=== PATIENT | male | born 1955 | race Caucasian/White ===

== ENCOUNTER → 2021-04-08 | Outpatient (CLI) | payer BC ==
--- NOTE | 2021-04-09 10:46 | ECHOF ---
Referral Reason:R01.1 MEASUREMENTS -------- HEIGHT: 172.7 cm WEIGHT: 81.6 kg BP: 171/89 RVIDd: 2.9 cm (< 3.3) IVSd: 1.3 cm (0.6 - 1.1) LVIDd: 4.3 cm (3.9 - 5.3) LVPWd: 1.3 cm (0.6 - 1.1) IVSs: 1.8 cm LVIDs: 2.9 cm LVPWs: 1.9 cm LA Diam: 3.5 cm (2.7 - 3.8) LAESV Index (A-L): 26.73 ml/m Ao Diam: 4.1 cm (2.0 - 3.7) AV Cusp: 2.1 cm (1.5 - 2.6) MV E Tong: 0.79 m/s MV DecT: 342 ms MV A Tong: 0.99 m/s MV E/A Ratio: 0.80 AV maxP.17 mmHg AV meanP.28 mmHg AR PHT: 853 ms FINDINGS -------- Sinus rhythm. This was a technically adequate study. The left ventricular size is normal. There is mild concentric left ventricular hypertrophy. Overa ll left ventricular systolic function is normal with, an EF between 60 - 65 %. The right ventricle is normal in size. Normal LA size by volume 22+/-6 ml/m2. The right atrium is normal in size. Interatrial and interventricular septum intact. There is moderate aortic valve sclerosis. There is [id number] aortic regurgitation. There i s moderate aortic stenosis present. Peak/mean gradient across the Aortic Valve is 53.17mmHg / 29.28 mmHg. The mitral valve is normal. The tricuspid valve appears structurally normal. Unable to estimate RVSP due to inadequate TR jet s pectral doppler profile. Trace/mild (physiologic) pulmonic regurgitation. The aortic root is dilated measuring 4.1cm. Normal inferior vena cava with normal inspiratory collapse consistent with estimated right atrial pre ssure of 5 mmHg. There is no pericardial effusion. CONCLUSIONS -------- 1. The left ventricular size is normal. 2. There is mild concentric left ventricular hypertrophy. 3. Overall left ventricular systolic function is normal with, an EF between 60 - 65 %. 4. There is moderate aortic valve sclerosis. 5. There is sdsb-rt-ddtjlplo aortic regurgitation. 6. There is moderate aortic stenosis present. 7. Peak/mean gradient across the Aortic Valve is 53.17mmHg / 29.28mmHg. 8. Trace/mild (physiologic) pulmonic regurgitation. 9. The aortic root is dilated measuring 4.1cm. 10. There is no pericardial effusion. RIDER TICKET WORKER: Clary Hennessy RDCS
== END | disposition home or self-care (01) ==
LOC: RADECHMAIN 13:47
PROVIDERS: ATTEND Family Medicine
DX: I35.2 Nonrheumatic aortic (valve) stenosis with insufficiency (principal); I37.1 Nonrheumatic pulmonary valve insufficiency; I51.7 Cardiomegaly; I35.8 Other nonrheumatic aortic valve disorders
CPT/HCPCS: 93306

== ENCOUNTER → 2021-04-12 | Outpatient (CLI) | payer BC ==
--- NOTE | 2021-04-12 11:54 | CT ---
EXAMINATION TYPE: CT angio head neck DATE OF EXAM: 04/12/2021 COMPARISON: None HISTORY: Family hx of (Ischem Dis. & Dis. of Circ. System CT DLP: 1547.40 mGycm CONTRAST: Performed without and with IV Contrast, patient injected with 65 mL of Isovue 370. Combination Contrast CTA cervical carotids and [place] CTA cervical carotids with 3-D recons truction Contrast CTA of the cervical carotids was performed 3-D reconstruction imaging obtained at a separate workstation. Right carotid system: Mild plaque is seen of the right common carotid artery. There is mild plaque a lso noted at the carotid bulb and proximal ICA. No significant diameter reduction. ECA is patent. Right vertebral artery appears unremarkable. Left carotid system: Mild plaque is seen of the left common carotid artery. There is mild plaque als o noted at the carotid bulb and proximal ICA. No significant diameter reduction. ECA is patent. Lef t vertebral artery appears unremarkable. IMPRESSION: 1. No significant diameter reduction to account for the patient's symptoms. CTA [place] with 3-D reconstruction Contrast CTA of the [place] was performed 3-D reconstruction imaging obtained at a separate workstation. Vertebrobasilar system as well as intracranial portions of the internal carotid arteries and their ma jameel tributaries are patent. I do not see evidence for sizable aneurysm or vascular malformation. Pl ease note MRI provides greater sensitivity and specificity. Visualized brain appears grossly unremar kable. IMPRESSION: 1. No significant abnormality. NASCET criteria was used in interpretation of this exam?
== END | disposition home or self-care (01) ==
LOC: RADCTMAIN 08:58
PROVIDERS: ATTEND Family Medicine
DX: I65.23 Occlusion and stenosis of bilateral carotid arteries (principal); Z82.49 Family history of ischemic heart disease and other diseases of the circulatory system
CPT/HCPCS: 70496; 70498; Q9967

== ENCOUNTER → 2022-06-09 | Outpatient (CLI) | payer MEDICARE, BC ==
[2022-06-09 10:49] VITALS: BP 169/81; PULSE 74; RESP 18; TEMP 98.7
--- NOTE | 2022-06-09 16:27 | P.PAINPG ---
PQRS Measure Charge Sheet Comment: HISTORY OF PRESENT ILLNESS: 66 yr old male as a referral from Dr Esquivel presents today w severe and chronic LBP secondary to DDD, spondylosis and facet arthropathy without myelopathy for evaluation. Pt states pain level is provoked at 8/10 in intensity, constant, localized in the R lower lumbar spine, achy in character w shooting pain towards the RLE. Pain is provoked by bending lifting. Pain is alleviated by topicals, injections in the past, repositioning and rest. Pt states he's had ESIs in the past which were minimally effective. He feels PT wouldn't help treat his pain. PMH: OA, HTN. He stated he's started receiving treatment for anxiety. PSH: Inguinal Hernia Repair SH: Hx of tobacco use, Occasional ETOH use, No illicit drug use. 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 FH: Non contributory All: NKDA Meds: See list REVIEW OF ORGAN SYSTEMS: CONSTITUTIONAL: No fevers or chills. No recent weight loss. NEUROLOGICAL: + numbness and tingling along the distal extremities. No seizure disorders or headaches. MUSCULOSKELETAL: + pain PSYCHIATRIC: Denies current depression or suicidal thoughts. Physical Examinations : Constitutional : Cooperative , not in acute distress . Neurologic : Cranial nerve II to XII intact. No focal neurological deficits. Psychiatric : alert & oriented x 3. Matching mood & appropriate affect. Judgment & insight intact. Musculoskeletal : Cervical Spine Motor strength in the deltoid and biceps: Normal right side. Normal Left side Motor strength biceps and the wrist extensors: Normal right side . Normal left side Motor strength in the triceps muscle: Normal right side. Normal left side Deep tendon reflexes: Normal at the biceps. Normal at Brachioradialis. Normal at triceps Vertebral body tenderness to deep palpation over Cervical facet loading test: positive bilaterally Spurling test: positive bilaterally Neck distraction test: positive bilaterally Ubaldo sign: positive bilaterally Lumbar spine Motor strength lower extremities ,thigh and legs 5/5 Right side , 5/5 Left side Deep tendon reflexes : Normal Knee Jerk. Normal Ankle Jerk Vertebral body tenderness over L5 Lumbar facet Loading Test: positive Right / positive Left Range of motion of the lumbar spine Flexion 30 degrees, extension 10 degrees Straight Leg Raise test: Left/ Right positive at degree Marianne test: positive right / positive left. Severe tenderness over the Sacroiliac joint on the Right / Left sides Gaenslen test: positive bilaterally Seated flexion test: positive bilaterally. Sacral spine : Severe tenderness over the Sacroiliac joint: right side / left side Range of motion: Flexion of the lumbar spine <60 degrees Range of motion: Extension of the lumbar spine <20 degrees Gaenslen's Test positive William's Test positive Marianne test: positive right side / left side Thigh Thrust Test Sacral Thrust Test Imaging: MRI without contrast of the lumbar spine from Apr 2022 reviewed Assessment/ Plan : Lumbar DDD Recommendation of PT x 6 wks re: M51.36. Risks, benefits of procedure discussed and patient verbalized understanding. Admits to aspirin or anti- coagulant use or medical history of diabetes. Protocol for discontinuation/ continuation of medications zoila procedure discussed. All questions answered. I have spent greater than 30 minutes on patient care today. Dr Watson was a vailable by phone for the evaluation of this patient. The time was used to review the medical records including relevant urine studies and Prescription history (MAPs), review of the available imaging, evaluation and examination of the patient, coordination of care with the medical staff and if applicable referring physicians, as well as creation of the medical record - Pain Location Right Lower Back Pharmacological Interventions: Topical Medication Controlled Substance Measures - Controlled Substance Measures Is patient prescribed a controlled substance at discharge?: No
== END ==
LOC: PNWHC3 09:49
PROVIDERS: ATTEND Specialist
DX: M51.36 Other intervertebral disc degeneration, lumbar region (principal); M19.90 Unspecified osteoarthritis, unspecified site; I10 Essential (primary) hypertension
CPT/HCPCS: 99211

== ENCOUNTER → 2022-08-04 | Outpatient (CLI) | payer MEDICARE, BC ==
[2022-08-04 10:33] VITALS: BP 155/82; PULSE 53; RESP 18
--- NOTE | 2022-08-07 07:42 | P.PAINPG ---
PQRS Measure Charge Sheet Comment: A 66 yr old male with a history of severe and chronic LBP secondary to lumbar DDD and spondylosis with facet arthropathy without myelopathy presents today for LBP. Pain level is provoked at 6/10 in intensity, constant, localized in the BL lower lumbar spine, dull in character w shooting towards the RLE, ankle mostly. Pain is provoked by bending, lifting > 40 lbs. Pain is alleviated with PT x 6 wks which ended in June 2022, Cannabis use, topicals, reclining, repositioning and rest. Pt states he's had ESIs in the past which were minimally effective. Interventional pain procedures completed include LESIs Patient is currently on Asper Creme, Voltaren gel Patient denies any side effects of the medication(s), denies excessive drowsiness or sleepiness, denies suicidal ideation and reports that the current pain medication is helping to control the pain and improve activities of daily living. Patient denies any motor or sensory deficits. Patient denies any fever or night sweats, denies any change in the bowel movements or urination. Physical Examination: -Constitutional: Cooperative. Not in acute distress . - Neurologic: Cranial nerve II to XII intact. No focal neurological deficits. - Psychatric: Alert & oriented x 3. Matching mood & appropriate affect. Judgment and insight intact. - Musculoskeletal: Cervical spine: Muscle bulk/ tone/ strength in the bilateral upper extremities normal Vertebral body tenderness to palpation over Spurling test positive Distraction test positive Facet loading test positive TTP Thoracic spine Muscle bulk / tone/ strength in the bilateral paraspinal muscles normal Vertebral body tender to palpation over Facet loading test positive TTP Lumbar spine: Motor bulk/ tone/ strength lower extremities , thigh and legs : 5/5 Deep tendon reflexes : Normal Knee Jerk. Normal Ankle Jerk . Vertebral body tenderness to palpation over Oneal Test positive on L5 Lumbar Facet Loading Test positive Straight Leg Raise: positive at 30 degrees right side/ left side Gaenslen's Test positive Sacral spine : Severe tenderness over the Sacroiliac joint: right side / left side Range of motion: Flexion of the lumbar spine <60 degrees Range of motion: Extension of the lumbar spine <20 degrees Gaenslen's Test positive right side / left side Marianne test: positive right side / left side Thigh Thrust Test positive right side / left side Sacral Thrust Test positive right side / left side Imaging: MRI noncontrast of the lumbar spine from 2/24/23 requested from [facility] Assessment and plan: Chronic LBP secondary to lumbar DDD, spondylosis with facet arthropathy without myelopathy Recommendation of R TFESI L5-S1 #1. May need a series of injections for optimal pain relief. Risks, benefits of procedure discussed and pt verbalized understanding. Admits to anticoagulant use or medical history of diabetes. Protocol for discontinuation/ continuation of medications zoila procedure discussed. Minimal anesthesia provided, if clinically indicated, consisting of Versed and Fentanyl. All questions answered. I have spent less than 30 minutes on patient care today. Dr Watson was available by phone for the evaluation of this patient. The time was used to review the medical records including relevant urine studies and Prescription history (MAPs), review of the available imaging, evaluation and examination of the patient, coordination of care with the medical staff and if applicable referring physicians, as well as creation of the medical record PQRS Narrative: Hx Alcohol Use (MH) No Controlled Substance Measures - Controlled Substance Measures Is patient prescribed a controlled substance at discharge?: No
== END ==
LOC: PNWHC3 09:53
PROVIDERS: ATTEND Specialist
DX: M51.36 Other intervertebral disc degeneration, lumbar region (principal); M47.816 Spondylosis without myelopathy or radiculopathy, lumbar region; G89.29 Other chronic pain
CPT/HCPCS: 99211

== ENCOUNTER 2022-08-26 08:43 | Day surgery (SDC) | payer MEDICARE, BC ==
[~2022-08-26 08:43] MED LIST: LACTATED RINGERS 1,000 ML IV SCH
[2022-08-26 09:11] VITALS: RESP 16; TEMP 98
[2022-08-26] MEDS ORDERED: methylPREDNISolone ACETATE 80 MG/ML 1 ML VIAL ONE (09:25)
[2022-08-26] MEDS ORDERED: IOPAMIDOL M200 10 ML VIAL ONE (09:25)
--- NOTE | 2022-08-26 09:33 | P.PCN ---
Date of Procedure: 08/26/22 Procedure(s) Performed: PREOPERATIVE DIAGNOSIS: 1-Lumbar radiculopathy . 2-lumbar degenerative disc disease. 3-lumbar spondylosis with lumbar facet arthropathy without myelopathy POSTOPERATIVE DIAGNOSIS: 1-lumbar radiculopathy. 2-lumbar degenerative disc disease. 3-lumbar spondylosis with facet arthropathy without myelopathy PROCEDURE 1. Transforaminal epidural steroid injection under fluoroscopic guidance at right L5-S1 level. (Fluoroscopy images stored on file in the radiology Department ) 2. Lumbar epidurogram . ANESTHESIA: Local with 1% lidocaine 3 ml. EBL: Minimal PROCEDURE INDICATION: The patient with low back pain and radiculopathy symptoms unresponsive to conservative treatment. PROCEDURE DESCRIPTION / TECHNIQUE: The patient was seen and identified in the preoperative area. Risks, benefits, complications, and alternatives were discussed with the patient. The patient agreed to proceed with the procedure and signed the consent. IV was started, and vital signs were stable. Patient was taken to the OR and time out was completed. The patient was placed in the prone position on procedure table and a pillow was placed under the abdomen to reduce lumbar lordosis. The lumbosacral area was prepped and draped in the usual sterile fashion. Critical pause was taken. Vital signs were closely monitored during the procedure. Using oblique fluoroscopy, the chin of the ``Christofer dog at right L5-S1 level was identified, and the skin and deeper tissues just below was localized with 1% lidocaine. Subsequently, a 22-gauge 3.5-inch spinal needle was advanced under a tunneled view fluoroscopic guidance just underneath the chin of the `Tahiry dog at the right L5-S1 Under lateral fluoroscopy, the needle was then advanced to the posterior border of the interforaminal space. After negative aspiration of CSF and blood and with no paresthesias, 1 mL Isovue 200 contrast dye was injected excellent epidurogram and outlining of the nerve root Subsequently, 3 mL of block solution containing 60 mg Depo-Medrol and 2 mL of 0.9% normal saline PF was injected. Needle was removed . At the end of the procedure, skin was cleansed, and bandages were applied. COMPLICATIONS:none DISPOSITION / PLANS: The patient was placed in a supine position and transferred to the recovery area in a stable condition for observation. There was no evidence of lower extremity motor or sensory deficit after the procedure. Patient was discharged from the recovery room after meeting discharge criteria. Home discharge instructions were given to the patient by the staff. The patient was reexamined prior to discharge.
--- NOTE | 2022-08-26 09:44 | FL ---
Intraoperative/procedural fluoroscopic services were provided. Total fluoroscopy time is 5.1 seconds with a total of 1 submitted images to PACS. Please see the operative/procedural note for further deta ils. DAP: [id number] mGym2
[2022-08-26 09:51] VITALS: BP 192/88; PULSE 69
== END 2022-08-26 10:08 | disposition home or self-care (01) ==
LOC: ORPAIN 08:43
PROVIDERS: ATTEND Specialist
DX: M51.16 Intervertebral disc disorders with radiculopathy, lumbar region (principal); M47.26 Other spondylosis with radiculopathy, lumbar region; Z79.82 Long term (current) use of aspirin
CPT/HCPCS: 64483; J1040; Q9966

== ENCOUNTER → 2022-09-03 | Outpatient (CLI) | payer MEDICARE, BC ==
[2022-09-03 15:53] LABS: Basophils # (A) 0.05 X 10*3/uL (0.00-0.10); Basophils % (A) 0.7 %; Eosinophils % (A) 2.9 %; HCT 41.9 % (39.6-50.0); HGB 13.3 d/dL (12.0-15.0); Lymphocytes # (A) 2.22 X 10*3/uL (0.90-5.00); Lymphocytes % (A) 32.1 %; MCH 29.4 pg (27.0-32.0); MCHC 31.7 d/dL (32.0-37.0); MCV 92.5 FL (80.0-97.0); Monocytes # (A) 0.47 X 10*3/uL (0.20-1.00); Monocytes % (A) 6.8 %; NRBC Per 100 WBC 0 X 10*3/uL (0.00-0.01); Neutrophils # (A) 3.96 X 10*3/uL (1.80-7.70); Neutrophils % (A) 57.4 %; Platelet Count 178 X 10*3/uL (140-440); RBC 4.53 X 10*6/uL (4.40-5.60); RDW 13.7 % (11.5-14.5); WBC 6.91 X 10*3/uL (4.50-10.00)
== END | disposition home or self-care (01) ==
LOC: LABPAT 08:33
PROVIDERS: ATTEND Surgery
DX: Z01.818 Encounter for other preprocedural examination (principal); K40.90 Unilateral inguinal hernia, without obstruction or gangrene, not specified as recurrent; R94.31 Abnormal electrocardiogram [ECG] [EKG]; R00.1 Bradycardia, unspecified
CPT/HCPCS: 85025; 93005

== ENCOUNTER 2022-09-09 06:50 | Day surgery (SDC) | payer MEDICARE, BC ==
[~2022-09-09 06:50] MED LIST changes: +ACETAMINOPHEN TAB 500 MG TAB PO PRN; +HEPARIN SODIUM,PORCINE/PF 5,000 UNIT/0.5 ML SYRINGE SQ PRN; -LACTATED RINGERS 1,000 ML IV SCH
[2022-09-09] MEDS ORDERED: ONDANSETRON 4 MG/2 ML VIAL IVP ONE (07:14)
[2022-09-09] MEDS ORDERED: LIDOCAINE 1% (10MG/ML) FOR IV START INTRADERMA PRN (07:14)
[2022-09-09] MEDS ORDERED: LACTATED RINGERS 1,000 ML IV SCH (07:14)
[2022-09-09] MEDS ORDERED: droPERidol 5 MG/2 ML VIAL IVP ONE (07:14)
[2022-09-09] MEDS ORDERED: HYDROmorphone 0.5 MG/0.5 ML SYRINGE IVP PRN (07:14)
[2022-09-09] MEDS ORDERED: DEXAMETHASONE SOD PHOSPHATE 4 MG/ML 1 ML VIAL IV ONE (07:14)
[2022-09-09] MEDS ORDERED: MIDAZOLAM 2 MG/2 ML VIAL IVP ONE (08:07)
[2022-09-09] MEDS ORDERED: TAMSULOSIN 0.4 MG CAP.ER.24H PO ONE (08:25)
[2022-09-09] MEDS ORDERED: ROPIVACAINE 5 MG/ML 30 ML VIAL ONE (08:28)
[2022-09-09] MEDS ORDERED: SODIUM CHLORIDE 0.9% (PF) 10 ML VIAL ONE (08:28)
[2022-09-09] MEDS ORDERED: KETOROLAC 15 MG/ML 1 ML VIAL ONE (08:28)
[2022-09-09] MEDS ORDERED: SUCCINYLCHOLINE CHLORIDE 200 MG/10 ML VIAL IV ONE (08:28)
[2022-09-09] MEDS ORDERED: GLYCOPYRROLATE 0.2 MG/ML 2 ML VIAL ONE (08:28)
[2022-09-09] MEDS ORDERED: KETAMINE 10 MG/ML 20 ML VIAL ONE (08:28)
[2022-09-09] MEDS ORDERED: MIDAZOLAM 2 MG/2 ML VIAL ONE (08:28)
[2022-09-09] MEDS ORDERED: fentaNYL (PF) 50 MCG/ML 2 ML AMP ONE (08:28)
[2022-09-09] MEDS ORDERED: ROCURONIUM 10 MG/ML (5 ML VIAL) IV ONE (08:28)
[2022-09-09] MEDS ORDERED: NEOSTIGMINE 1 MG/ML 10 ML VIAL ONE (08:28)
[2022-09-09] MEDS ORDERED: PROPOFOL 10 MG/ML 20 ML VIAL IV ONE (08:28)
[2022-09-09] MEDS ORDERED: DEXAMETHASONE SOD PHOSPHATE 4 MG/ML 1 ML VIAL ONE (08:28)
[2022-09-09] MEDS ORDERED: PHENYLEPHRINE-0.9% NACL SYG 1,000 MCG/10 ML SYRINGE ONE (08:28)
[2022-09-09] MEDS ORDERED: BUPIVACAINE (PF) 0.25% 30 ML VIAL SQ ONE (09:03)
[2022-09-09 09:41] VITALS: TEMP 97.5
[2022-09-09] MEDS ORDERED: LACTATED RINGERS 1,000 ML IV ONE (10:11)
[2022-09-09] MEDS ORDERED: ONDANSETRON 4 MG/2 ML VIAL ONE (10:41)
[2022-09-09 11:02] VITALS: BP 183/91; PULSE 61; RESP 18
--- NOTE | 2022-09-09 11:13 | P.OP ---
Date of Procedure: 09/09/22 Preoperative Diagnosis: Left inguinal hernia Postoperative Diagnosis: recurrent left inguinal hernia Procedure(s) Performed: Laparoscopic robotic system repair of recurrent left internal hernia Transversus abdominis plane block Anesthesia: ALLEGRA Surgeon: Piotr Levy Estimated Blood Loss (ml): 5 Pathology: none sent Condition: stable Disposition: PACU Description of Procedure: The patient's placed on the operating table in the supine position. The patient received general anesthesia. The patient's abdomen was prepped and draped in usual sterile fashion. The skin was anesthetized 1% local Xylocaine at the incision sites. Using an 11 blade a skin incision was made at the umbilicus. The fascia was grasped with a Benton and then the peritoneal cavity was entered with the Veress needle. Position of the Veress needle was confirmed with a positive drop test. After adequate insufflation a 5 mm trocar was placed into the peritoneal cavity. The Laparoscope was placed the peritoneal cavity. And a robotic 8 mm trocar was placed in the right lateral position and then another 8 mm robotic trochars placed in the left lateral position. The original 5 mm trocar was exchanged for a 12 mm trocar. A four-quadrant transversus abdominis plane block was performed using 1% local Xylocaine. The patient was placed in reverse Trendelenburg and then the patient was docked to the robot. Next the peritoneum over top of the hernia was incised and then using blunt and sharp dissection and electrocautery the hernia sac was dissected free from the floor of the inguinal canal. The hernia sac was completely reduced into the peritoneal cavity. And then using the [employer] sales appointment coordinator mesh the hernia was repaired. The peritoneum was then sutured with 20V lock suture. The patient was then undocked the robot. The needle was withdrawn from the peritoneal cavity. The umbilical trocar site was closed with 0 Ethibond suture. The skin was closed interrupted 3-0 Monocryl suture. Dermabond dressing was applied. Patient was sent to recovery in stable condition.
--- NOTE | 2022-09-09 11:49 | P.ANPRN ---
Procedure Note - Anesthesia - Nerve Block Performed Bilateral Erector Spinae Single Time Out Performed: Yes Date of Procedure: 09/09/22 Procedure Start Time: : Procedure Stop Time: : Location of Patient: PreOp Indication: Acute Post-Operative Pain, Requested by Surgeon Sedation Type: Sedate with meaningful contact maintained Preparation: Sterile Prep Position: Prone Catheter: None Needle Types: Pajunk Needle Gauge: 21 Ultrasound used to visualize needle placement: Yes Ultrasound used to observe medication spread: Yes Blood Aspirated: No Pain Paresthesia on Injection Noted: No Resistance on Injection: Normal Image Stored and Saved: Yes Events: Uneventful and Well Tolerated (Ropivacaine 0.5% 15 mL plus normal saline 10 mL plus dexamethasone 4 mg given bilaterally at L2)
== END 2022-09-09 11:39 | disposition home or self-care (01) ==
LOC: OR 06:50
PROVIDERS: ATTEND Surgery
DX: K40.91 Unilateral inguinal hernia, without obstruction or gangrene, recurrent (principal); G89.18 Other acute postprocedural pain; I10 Essential (primary) hypertension; E78.5 Hyperlipidemia, unspecified; E07.9 Disorder of thyroid, unspecified; Z79.890 Hormone replacement therapy; Z79.899 Other long term (current) drug therapy; Z98.890 Other specified postprocedural states
CPT/HCPCS: 49651; S2900; 64999; 86850; 86900; 86901

== ENCOUNTER → 2022-09-17 | Outpatient (CLI) | payer MEDICARE, BC ==
[2022-09-17 09:25] VITALS: BP 173/90; PULSE 68; RESP 14; TEMP 98.2
--- NOTE | 2022-09-17 15:30 | P.PAINPG ---
PQRS Measure Charge Sheet Comment: A 66 yr old male with a history of severe and chronic LBP secondary to lumbar DDD and spondylosis with facet arthropathy without myelopathy presents today for evaluation s/p R TFESI L5-S1. PT states he experienced 80% pain relief x 3 wks s/p procedure. Pain level is provoked at 4/10 in intensity, constant, localized in the BL lower lumbar spine, dull in character w shooting towards the RLE, ankle mostly. Pain is provoked by bending, lifting > 40 lbs. Pain is alleviated with PT x 6 wks which ended in June 2022, Cannabis use, topicals, reclining, repositioning and rest. Oswestry axial pain score of 4. Interventional pain procedures completed include LESIs, R TFESI L5-S1 Patient is currently on Asper Creme, Voltaren gel Patient denies any side effects of the medication(s), denies excessive drowsiness or sleepiness, denies suicidal ideation and reports that the current pain medication is helping to control the pain and improve activities of daily living. Patient denies any motor or sensory deficits. Patient denies any fever or night sweats, denies any change in the bowel movements or urination. Physical Examination: -Constitutional: Cooperative. Not in acute distress . - Neurologic: Cranial nerve II to XII intact. No focal neurological deficits. - Psychatric: Alert & oriented x 3. Matching mood & appropriate affect. Judgment and insight intact. - Musculoskeletal: Cervical spine: Muscle bulk/ tone/ strength in the bilateral upper extremities normal Vertebral body tenderness to palpation over Spurling test positive Distraction test positive Facet loading test positive TTP Thoracic spine Muscle bulk / tone/ strength in the bilateral paraspinal muscles normal Vertebral body tender to palpation over Facet loading test positive TTP Lumbar spine: Motor bulk/ tone/ strength lower extremities , thigh and legs : 5/5 Deep tendon reflexes : Normal Knee Jerk. Normal Ankle Jerk . Vertebral body tenderness to palpation over Oneal Test positive Lumbar Facet Loading Test positive Straight Leg Raise: positive at 30 degrees right side/ left side Gaenslen's Test positive Sacral spine : Severe tenderness over the Sacroiliac joint: right side / left side Range of motion: Flexion of the lumbar spine <60 degrees Range of motion: Extension of the lumbar spine <20 degrees Gaenslen's Test positive right side / left side Marianne test: positive right side / left side Thigh Thrust Test positive right side / left side Sacral Thrust Test positive right side / left side Imaging: MRI noncontrast of the lumbar spine from 04/25/22 requested from [facility] Assessment and plan: Chronic LBP secondary to lumbar DDD, spondylosis with facet arthropathy without myelopathy Pt exhibited substantial pain relief w procedure. He may return to clinic as needed. All questions answered. I have spent less than 30 minutes on patient care today. Dr Watson was available by phone for the evaluation of this patient. The time was used to review the medical records including relevant urine studies and Prescription history (MAPs), review of the available imaging, evaluation and examination of the patient, coordination of care with the medical staff and if applicable referring physicians, as well as creation of the medical record PQRS Narrative: Hx Alcohol Use (MH) No Home Medications: Ambulatory Orders Losartan Potassium [Cozaar] 100 mg PO DAILY 08/04/22 Sertraline [Zoloft] 50 mg PO DAILY 08/04/22 Turmeric Root Extract [Turmeric] 1 tab PO DAILY 08/04/22 Aspirin 325 mg PO DAILY 08/22/22 D-Ribose 700 mg PO DAILY 08/22/22 Levothyroxine Sodium [Synthroid] 112 mcg PO DAILY 08/22/22 Magnesium 400 mg PO DAILY 08/22/22 Niacinamide 500 mg PO DAILY 08/22/22 Vitamin D3/Vitamin K2 (Mk4) [Vitamin K2 Plus D3 Tablet] 1 each PO DAILY 08/22/22 Acetaminophen Tab [Tylenol] 650 mg PO Q6H #30 tab 09/09/22 Docusate [Colace] 100 mg PO BID #20 capsule 09/09/22 Ibuprofen [Motrin] 600 mg PO Q6HR PRN #40 tab 09/09/22 oxyCODONE HCL [OxyIR] 5 mg PO Q6H PRN 3 Days #10 tab 09/09/22 Controlled Substance Measures - Controlled Substance Measures Is patient prescribed a controlled substance at discharge?: No
== END ==
LOC: PNWHC3 08:46
PROVIDERS: ATTEND Specialist
DX: M51.36 Other intervertebral disc degeneration, lumbar region (principal); M47.816 Spondylosis without myelopathy or radiculopathy, lumbar region; G89.29 Other chronic pain; Z79.82 Long term (current) use of aspirin
CPT/HCPCS: 99211

== ENCOUNTER → 2023-02-19 | Outpatient (CLI) | payer MEDICARE, BC ==
[2023-02-19 12:19] LABS: African American GFR (CKD) 81 (>60 ml/min/1.73 sqM); Blood Urea Nitrogen 22 mg/dL (9-20); Non-African American GFR(CKD) 70 (>60 ml/min/1.73 sqM)
--- NOTE | 2023-02-19 13:56 | CT ---
EXAMINATION: CT ABDOMEN AND PELVIS WITH IV CONTRAST DATE OF EXAMINATION: 02/19/2023. COMPARISON: None available. INDICATION: Abdominal discomfort. PROCEDURE: Axial CT of the abdomen and pelvis was performed with contrast and sagittal and coronal reformatted images were performed. CT dose lowering techniques were used, to include: automated expos ure control, adjustment for patient size, and/or use of iterative reconstruction. 100 mL of Isovue-30 0 was given intravenously. FINDINGS: LOWER CHEST : There appears to be some mild emphysematous changes at the visualized lung bases. Ther e are a few linear bands of likely atelectasis or scarring. ABDOMEN: Liver and Biliary system: There is a heterogeneously enhancing mass within the left lobe of the live r which is favored to be benign in the absence of known malignancy, however an MRI would be recommend ed for further evaluation. There are additional scattered subcentimeter hypodensities within the live r that are too small to fully characterize. Adrenal glands: Normal. Kidneys and ureters: Normal. Spleen: Normal. Pancreas: Normal. Gallbladder: Normal. Lymph nodes, Peritoneum and mesentery: There is no mesenteric or retroperitoneal lymphadenopathy. Gastrointestinal tract: There are no dilated loops of bowel or free intraperitoneal air. The appe ndix is normal. Aorta/IVC: There is significant vascular calcification and plaque seen throughout the abdominal aor ta without evidence of aneurysmal dilation or dissection. IVC normal. Abdominal wall: Normal. PELVIS: Fluid: There is no free fluid in the pelvis. Lymph Nodes: There is no pelvic or inguinal lymphadenopathy.. Urinary bladder: Normal. BONES: There are multilevel degenerative disc and facet changes seen throughout the spine. There are no acute osseous abnormalities. ADDITIONAL SIGNIFICANT FINDINGS: None. IMPRESSION: 1. No acute process within the abdomen or pelvis. 2. Indeterminate enhancing mass within the left lobe of the liver is favored to be benign in the abse nce of known malignancy, however an MRI is recommended for further evaluation.
== END | disposition home or self-care (01) ==
LOC: RADCTMAIN 11:41
PROVIDERS: ATTEND Family Medicine
DX: K40.90 Unilateral inguinal hernia, without obstruction or gangrene, not specified as recurrent (principal); R10.84 Generalized abdominal pain
CPT/HCPCS: 82565; 84520; 74177; 36415; Q9967

== ENCOUNTER → 2023-03-16 | Outpatient (CLI) | payer MEDICARE, BC ==
--- NOTE | 2023-03-20 06:53 | CT ---
EXAMINATION TYPE: CT thoracic spine wo con DATE OF EXAM: 03/16/2023 COMPARISON: None HISTORY: bone lesions seen on MRI CT DLP: 598.7 mGycm, Automated Exposure Control for Dose Reduction was Utilized. CONTRAST: CT scan of the thoracic spine is performed without contrast. FINDINGS: There is S-shaped scoliosis. Osseous structures are demineralized. There is loss of normal thoracic k yphosis. There is multilevel mfxa-cq-yoeoaltq disc space narrowing and moderate anterior and lateral spurring. Mild anterior wedging in the upper to mid thoracic spine is seen. No acute displaced fractu re. Vertebral body heights are otherwise maintained. Osseous hemangiomas present involving the T11 ve rtebra. No suspicious focal lytic or sclerotic lesion is seen. There is calcification or surgical luba nge along the aortic valve partially imaged. IMPRESSION: As above. No distinct suspicious focal osseous lesion. If Outside MRI becomes available a n addendum may be issued.
== END | disposition home or self-care (01) ==
LOC: RADCTMAIN 16:07
PROVIDERS: ATTEND Psychiatry & Neurology Neurology
DX: M89.9 Disorder of bone, unspecified (principal)
CPT/HCPCS: 72128

== ENCOUNTER → 2023-04-27 | Outpatient (CLI) | payer MEDICARE, BC ==
--- NOTE | 2023-04-28 05:16 | MR ---
EXAMINATION TYPE: MR liver wo/w con DATE OF EXAM: 04/27/2023 COMPARISON: CT abdomen and pelvis February 19, 2023 HISTORY: Abdominal pain and abnormal CT. Hepatomegaly. CONTRAST: Standard multiplanar, multisequence MRI departmental protocol images were obtained without contrast a nd with 7.5 mL intravenous Gadobutrol gadolinium contrast. Imaging is performed of the abdomen focus ing on the liver. FINDINGS: Liver: Liver is overall normal in size. There are few small thin-walled cysts scattered throughout th e liver. In the lateral segment left hepatic lobe there is 2.7 x 2.0 cm lesion axial image 42 series 701 that has fairly homogeneous enhancement without washout. Imaging findings favor flash filling hem angioma. No internal gallstones. No biliary dilatation. No additional suspicious enhancing solid mass es. No adjacent ascites. Other: Lung bases are grossly clear. The spleen, pancreas, and both adrenal glands are within normal limits. No concerning renal mass or hydronephrosis seen bilaterally. Subcentimeter thin-walled cyst i n the right kidney is present. No abnormal small or large bowel dilatation. Scoliotic curvature in th e lumbar spine with multilevel spurring and disc space narrowing is redemonstrated. No intra-abdomina l ascites. No AAA. IMPRESSION: Confirmation of 2.7 x 2.0 cm nonsimple cyst in the lateral segment left hepatic lobe, [facility] imaging characteristics are consistent with benign flash filling hemangioma.
== END | disposition home or self-care (01) ==
LOC: RADMRIMAIN 04-13 18:44
PROVIDERS: ATTEND Family Medicine
DX: K76.89 Other specified diseases of liver (principal); D18.03 Hemangioma of intra-abdominal structures
CPT/HCPCS: 74183; A9585

== ENCOUNTER → 2023-12-22 | Outpatient (CLI) | payer MEDICARE, BC ==
--- NOTE | 2023-12-22 19:57 | CTL ---
EXAMINATION TYPE: CT Low Dose Lung DATE OF EXAM ORDERED: 12/22/2023 HISTORY: Nicotine dependence, quit smoking 2017, 50 pack-year history. Lung cancer screening CT DLP: 106.[address] CTDI: 2.9 mGy Automated exposure control for dose reduction was used. SCREENING VISIT: First screening visit COMPARISON: CT thoracic spine 03/16/2023, CT abdomen and pelvis 02/19/2023 TECHNIQUE: Low dose computed tomography scan was performed through the chest at 1 mm thick sections a nd reconstructed images in multiple planes at 1 mm and [address] DIAGNOSTIC QUALITY: Satisfactory FINDINGS: Nodules: Anterior right upper lobe 4.7 and 3.4 mm pulmonary nodular densities (series 6, image 13). LUNGS: COPD: Severity: None Fibrosis: Severity: None Lymph nodes: None Other findings: None RIGHT PLEURAL SPACE: Effusion: None Calcification: None Thickening: None Pneumothorax: None LEFT PLEURAL SPACE: Effusion: None Calcification: None Thickening: None Pneumothorax: None HEART: Heart Size: Normal size. Severe aortic valve calcifications. Coronary Calcification: Small Pericardial Effusion: Trace anterior pericardial effusion. OTHER FINDINGS: Upper abdomen: Stable anterior hepatic lobe 1.7 cm hypodense lesion consistent with a cyst. Stable i ll-defined 3.2 cm left hepatic lobe lesion. Additional few scattered subcentimeter hypodense foci wit hin the liver redemonstrated. Renal vascular calcifications. Bony thorax: Scoliotic curvature of the thoracic spine. Vertebral hemangioma involving the T11 verteb ral body. Mild multilevel degenerative disc disease. Supraclavicular region: Mildly enlarged thyroid gland. Other: Mild atherosclerotic calcification of the aorta and its branches. Dilatation of the ascending thoracic aorta measuring up to 4.4 cm. Ectatic descending thoracic aorta measuring up to 3.5 cm. IMPRESSION: 1. Couple of pulmonary nodules measuring less than 5 mm. 2. Redemonstration of hepatic lesions are prior CT 02/19/2023. Majority appear to represent cysts. Th e 3.2 cm left hepatic lesion demonstrated enhancement on prior exam and may represent a hemangioma ve rsus other etiologies. Consider further evaluation with MR abdomen with IV contrast (liver mass saima col). 3. Ascending thoracic aortic aneurysm measuring up to 4.3 cm. 4. Severe calcification of the aortic valve. CT LUNG RAD AND CT CHEST RECOMMENDATION: Lung-Rad 2 Benign Appearance or Behavior: Continue annual sc reening with LDCT in 12 months. S Modifier (other clinically significant findings): S [facility], , 12/22/2023 7:54 PM
== END | disposition home or self-care (01) ==
LOC: RADCTMAIN 07:53
PROVIDERS: ATTEND Family Medicine
CPT/HCPCS: 71271

== ENCOUNTER → 2024-01-05 | Outpatient (CLI) | payer MEDICARE, BC ==
--- NOTE | 2024-01-05 12:14 | CA ---
Lexiscan Nuclear Stress Test Report Name: Sridhar Crabtree Exam Date: 01/05/2024 10:31 Exam Location: [place] Stress Ht (in): 69 Wt (lb): 160 BSA: 1.88 Ordering Phys: Linden Jackson MD Referring Phys: LINDEN JACKSON Technologist: Dewayne Schultz Age: 68 Gender: M : 1955 Procedure CPT: Indications: R07.9 CHEST PAIN ICD-10 Codes: Patient History: CHEST PAIN, DIFFICULTY IN BREATHING, HTN, FAMILY HX OF HEART DISEASE, PRIOR SMOKER Medications: Meds past 24 hrs: Pretest Chest Pain: STRESS TEST Lexiscan Protocol Exercise Duration (min:sec): 02:[address] Depressions (mm): Angina Score: Sotelo Score: Resting HR (bpm): 55 Peak HR (bpm): 98 Resting BP (mmHg): 155 / 106 Peak BP (mmHg): 155 / 106 MPHR: 153 Target HR: 130 % MPHR: 64 METS: 1.0 Total Dose: Peak Dose: Atropine: Double Product: 55036 BP Response: Stress Termination: INFUSION COMPLETE Stress Symptoms: NO SYMPTOMS Stress Summary: ECG ANALYSIS Resting ECG: Normal sinus rhythm normal axis normal intervals Stress ECG: Patient was given intravenous Lexiscan as a protocol did not have chest pain or diagnostic ST segment depression CONCLUSIONS Negative stress test by EKG criteria Cardiolite portion of the stress test will be reported separately Dr. Jorge Hester MD (Electronically Signed) Final Date: 05 January 2024 12:13
--- NOTE | 2024-01-05 13:17 | NM ---
EXAMINATION TYPE: NM stress lexiscan cardiolite DATE OF EXAM: 01/05/2024 COMPARISON: NONE CLINICAL INDICATION: Male, 68 years old with history of R07.9 CHEST PAIN; TECHNIQUE: After the intravenous administration of 7.6 mCi Tc 99m Sestamibi - Cardiolite resting SPE CT images acquired 45 minutes post injection. The patient received 0.4mg Lexiscan, 24.8 mCi Tc 99m Sestamibi - Stress images obtained [address] injection FINDINGS: Review of stress and rest SPECT images demonstrates no distinct perfusion abnormality. Gated analysi s shows normal wall motion with an estimated left ventricular ejection fraction of 59 %. IMPRESSION: No scintigraphic evidence for reversible ischemia. [facility], , 01/05/2024 1:15 PM
== END | disposition home or self-care (01) ==
LOC: RADNMMAIN 08:28
PROVIDERS: ATTEND Family Medicine
DX: I10 Essential (primary) hypertension (principal); R07.9 Chest pain, unspecified; R06.00 Dyspnea, unspecified; Z82.49 Family history of ischemic heart disease and other diseases of the circulatory system
CPT/HCPCS: 93017; 78452; A9500

== ENCOUNTER → 2024-01-18 | Outpatient (CLI) | payer MEDICARE, BC ==
--- NOTE | 2024-01-19 22:47 | MR ---
EXAMINATION TYPE: MR liver wo/w con DATE OF EXAM: 01/18/2024 9:42 AM COMPARISON: MRI 04/27/2023 CLINICAL INDICATION: Male, 68 years old with history of R16.0 HEPATOMEGALY; PHH, Abnormal MRI, liver cyst TECHNIQUE: Multiplanar multi-sequence imaging was performed without contrast. Post contrast imaging was performed. Post IV contrast subtraction images were also submitted for review. IV Contrast: 7 mL Gadobutrol FINDINGS: LOWER CHEST: No gross irregularity. ABDOMEN Liver: No evidence for hepatic steatosis or cirrhosis. Scattered high T2 signal lesions are seen thro ughout the liver parenchyma largest which has some shading 29 x 19 mm which is not significantly hudson ged given differences in slice selection. There is similar somewhat homogenous enhancement of this le eulalio which persists on delayed imaging. There are scattered high T2 signal hepatic cysts without post contrast enhancement are present. Gallbladder and Bile ducts: No evidence for ductal dilation, or biliary stricture or evidence of chol edocholithiasis. The gallbladder is within normal limits. Pancreas: No ductal dilation. No evidence for solid mass. Spleen: Normal for size. Adrenal glands: Unremarkable. Kidneys: No evidence for obstructive uropathy. No suspicious renal masses. Subcentimeter simple right renal cyst. Stomach and Bowel: No evidence for bowel wall thickening or evidence for obstruction. Retroperitoneum/Peritoneum: No evidence of pneumoperitoneum or free fluid. Vasculature: No aortic aneurysm. Atherosclerosis of the arterial vasculature. Musculoskeletal: The osseous structures appear intact. Lymph Nodes: No gross evidence for lymphadenopathy. Abdominal wall: Unremarkable. IMPRESSION: 1. Stable left hepatic lobe arterial enhancing lesion with benign enhancement characteristics. Addit ional simple appearing hepatic cyst. 2. No evidence for acute abdominal process. 3. Appearing subcentimeter right renal cyst. [facility], , 01/19/2024 10:44 PM
== END | disposition home or self-care (01) ==
LOC: RADMRIMAIN 08:10
PROVIDERS: ATTEND Family Medicine
DX: R16.0 Hepatomegaly, not elsewhere classified (principal); K76.89 Other specified diseases of liver; N28.1 Cyst of kidney, acquired
CPT/HCPCS: 74183; A9585

== ENCOUNTER → 2024-05-03 | Day surgery (SDC) | payer MEDICARE, BC ==
[~2024-05-03] MED LIST changes: -ACETAMINOPHEN TAB 500 MG TAB PO PRN; -HEPARIN SODIUM,PORCINE/PF 5,000 UNIT/0.5 ML SYRINGE SQ PRN; +LIDOCAINE 1% (10MG/ML) FOR IV START INTRADERMA PRN; +LIDOCAINE 2% (PF) 20 MG/ML 5 ML VIAL ONE; +PROPOFOL 10 MG/ML 20 ML VIAL IV ONE
[2024-05-03 06:43] VITALS: TEMP 98.1
[2024-05-03] MEDS: IV FLUID CONTINUATION 1,000 ML IV ONE (06:54)
[2024-05-03] MEDS: LACTATED RINGERS 1,000 ML IV SCH (06:54)
--- NOTE | 2024-05-03 07:27 | P.PCN ---
Date of Procedure: 05/03/24 Procedure(s) Performed: Brief history: Patient is a pleasant 68-year-old white male scheduled for an elective upper endoscopy as well as colonoscopy as a part of evaluation of epigastric pain, lower abdominal pain and change in bowel habits for the last several months duration Procedure performed: Esophagogastroduodenoscopy Colonoscopy with snare polypectomy Preoperative diagnosis: Epigastric pain Abdominal pain and change in bowel habits Anesthesia: MAC Procedure: After informed consent was obtained from the patient was brought into the endoscopy unit and IV sedation was administered by anesthesia under continuous monitoring. Initially upper endoscopy was done. The Olympus GF 160 video endo scope was inserted inserted into the mouth and esophagus intubated without any difficulty and was gradually advanced into the stomach and duodenum and carefully examined. The bulb and second part of the duodenum appeared normal. The scope was then withdrawn into the stomach adequately insufflated with air and upon careful examination the antrum had scattered erosions and biopsies were done from this area. Mucosa body, cardia and fundus appeared normal. The scope was then withdrawn into the esophagus. Small hiatal hernia. The GE junction was located at 40 cm to the incisors. It appeared regular with no erythema erosions or ulcerations. Rest of the esophagus appeared normal. Patient tolerated the procedure well. At this time the patient continued to remain sedation. Initial digital rectal examination was normal. Olympus CF 160 video colonoscope was then inserted into the rectum and gradually advanced to the cecum without any difficulty. Careful examination was performed as the scope was gradually being withdrawn. The prep was excellent. The cecum normal. On the ileocecal valve there was a 2.5 cm broad-based polyp that was removed by piecemeal snare polypectomy. Complete polypectomy accomplished. Rest of the ascending colon, appeared normal. In the transverse colon there was a 5 mm polyp removed by snare polypectomy. Rest of the transverse colon, descending colon, sigmoid colon and rectum appeared normal. Retroflexion was performed in the rectum and no lesions were noted. Patient tolerated the procedure well. Impression: 1. Upper endoscopy revealed antral erosive gastritis and small hiatal hernia 2. Colonoscopy revealed 2.5 cm broad-based polyp on ileocecal valve status post piecemeal snare polypectomy and a 5 mm transverse colon polyp status post polypectomy. Recommendations: Findings of this examination were discussed with the patient as well as as well as his family. He was advised to follow-up with the biopsy results. If the biopsy reveals adenoma he can have repeat colonoscopy in 3 years.
[2024-05-03 08:01] VITALS: BP 126/87; PULSE 69; RESP 14
== END ==
LOC: ORWHC2ENDO 06:03
PROVIDERS: ATTEND Internal Medicine Gastroenterology
DX: R10.13 Epigastric pain (principal); R10.30 Lower abdominal pain, unspecified; K44.9 Diaphragmatic hernia without obstruction or gangrene; D12.0 Benign neoplasm of cecum; K63.5 Polyp of colon; K29.50 Unspecified chronic gastritis without bleeding; I10 Essential (primary) hypertension; M19.90 Unspecified osteoarthritis, unspecified site; E07.9 Disorder of thyroid, unspecified; F41.9 Anxiety disorder, unspecified; Z79.899 Other long term (current) drug therapy; Z87.891 Personal history of nicotine dependence
CPT/HCPCS: 45385; 43239; J2704; J2003; 88305

== ENCOUNTER → 2024-07-08 | Outpatient (CLI) | payer MEDICARE, BC ==
--- NOTE | 2024-07-10 11:38 | CA ---
Transthoracic Echo Report Name: Sridhar Crabtree Age: 68 Gender: M : 1955 Exam Date: 07/08/2024 14:33 Exam Location: [place] [facility] Ht (in): 68 Wt (lb): 170 Ordering Physician: Christa Mustafa MD Attending/Referring Phys: Chief Procurement Officer Carly Amso RDCS Procedure CPT: Indications: I35.0 Nonrheumatic aortic (valve) stenosis Cardiac Hx: Technical Quality: Good Contrast 1: Total Dose (mL): Contrast 2: Total Dose (mL): MEASUREMENTS (Male / Female) Normal Values 2D ECHO LV Diastolic Diameter PLAX 5.2 cm 4.2 - 5.9 / 3.9 - 5.3 cm LV Systolic Diameter PLAX 3.8 cm IVS Diastolic Thickness 1.1 cm 0.6 - 1.0 / 0.6 - 0.9 cm LVPW Diastolic Thickness 1.1 cm 0.6 - 1.0 / 0.6 - 0.9 cm LV Relative Wall Thickness 0.4 RV Internal Dim ED PLAX 2.9 cm LVOT Diameter 2.3 cm LA Systolic Diameter LX 4.0 cm 3.0 - 4.0 / 2.7 - 3.8 cm LV Diastolic Volume MOD BP 151.4 cm??? 67 - 155 / 56 - 104 cm??? LV Systolic Volume MOD BP 64.2 cm??? 22 - 58 / 19 - 49 cm??? LV Ejection Fraction MOD BP 57.6 % >= 55 % LV Diastolic Volume MOD 4C 166.7 cm??? LV Systolic Volume MOD 4C 59.6 cm??? LV Ejection Fraction MOD 4C 64.2 % LV Diastolic Length 4C 9.3 cm LV Systolic Length 4C 7.9 cm LV Diastolic Volume MOD 2C 129.7 cm??? LV Systolic Volume MOD 2C 51.4 cm??? LV Ejection Fraction MOD 2C 60.3 % LV Diastolic Length 2C 9.0 cm LV Systolic Length 2C 7.1 cm LA Volume 71.7 cm??? 18 - 58 / 22 - 52 cm??? LA Volume Index 37.1 cm???/m??? 16 - 28 cm???/m??? DOPPLER AV Peak Velocity 422.2 cm/s AV Peak Gradient 71.3 mmHg AV Mean Velocity 342.7 cm/s AV Mean Gradient 50.3 mmHg AV Velocity Time Integral 120.2 cm AI Peak Velocity 362.5 cm/s AI Peak Gradient 52.6 mmHg AI Pressure Half Time 619.5 ms MV Area PHT 1.7 cm??? Mitral E Point Velocity 63.9 cm/s Mitral A Point Velocity 93.0 cm/s Mitral E to A Ratio 0.7 MV Deceleration Time 439.1 ms TR Peak Velocity 7.6 cm/s TR Peak Gradient 0.0 mmHg Right Atrial Pressure 15.0 mmHg Pulmonary Artery Systolic Pressu 15.0 mmHg Right Ventricular Systolic Press 15.0 mmHg FINDINGS Left Ventricle Left ventricular ejection fraction is estimated at 55-60 %. Mildly increased septal wall thickness. Mildly increased left ventricular systolic volume. No obvious regional wall motion abnormalities. Right Ventricle Normal right ventricular size and function. Right ventricular systolic pressure within normal limits. Right Atrium Normal right atrial size. Left Atrium Moderately increased left atrial volume. Mitral Valve Mitral annular calcification. No mitral stenosis. Trace mitral regurgitation. Aortic Valve Diffuse thickening of the aortic valve cusps with reduced excursion. Moderate aortic regurgitation. Severe aortic stenosis with a peak velocity of 4.4 m/s, peak gradient 78 mmHg, mean gradient 50 mmHg Tricuspid Valve Structurally normal tricuspid valve. No tricuspid stenosis. Trace tricuspid regurgitation. Pulmonic Valve Structurally normal pulmonic valve. No pulmonic stenosis. Trace pulmonic regurgitation. Pericardium No pericardial effusion. Aorta Moderately dilated aortic annulus. CONCLUSIONS LVEF 55% Mild concentric LVH No obvious regional wall motion abnormality Moderate left atrial dilatation Calcified and thickened aortic valve with moderate aortic regurgitation, severe aortic stenosis with mean gradient 50 mmHg Mildly dilated aortic root measured at 4.2 cm Previewed by: Dr Rayshawn Calvert (Electronically Signed) Final Date: 10 Jul 2024 11:37
== END | disposition home or self-care (01) ==
LOC: RADECHMAIN 14:06
PROVIDERS: ATTEND Internal Medicine
DX: I35.2 Nonrheumatic aortic (valve) stenosis with insufficiency (principal)
CPT/HCPCS: 93306

== ENCOUNTER → 2024-09-09 | Day surgery (SDC) | payer MEDICARE, BC ==
[~2024-09-09] MED LIST changes: +ALPRAZolam 0.25 MG TAB PO PRN; +ALPRAZolam 0.5 MG TAB PO PRN; -LIDOCAINE 1% (10MG/ML) FOR IV START INTRADERMA PRN; -LIDOCAINE 2% (PF) 20 MG/ML 5 ML VIAL ONE; +NITROGLYCERIN SL TABS 0.4 MG TAB SUBLINGUAL PRN; -PROPOFOL 10 MG/ML 20 ML VIAL IV ONE; +RX INFO: IV CONTRAST WAS GIVEN 1 EACH MISC MISCELLANE PRN
[2024-09-09] MEDS: IV FLUID CONTINUATION 1,000 ML IV ONE ×2 (07:36→08:23)
[2024-09-09] MEDS: SODIUM CHLORIDE 0.9% 1,000 ML in EMPTY BAG 1 BAG IV SCH (07:47)
[2024-09-09] MEDS: ASPIRIN 325 MG TAB PO STA (07:56)
[2024-09-09 08:00] LABS: Basophils # (A) 0.07 10*3/uL (0.00-0.10); Basophils % (A) 0.8 %; Eosinophils # (A) 0.19 10*3/uL (0.04-0.35); Eosinophils % (A) 2.3 %; HCT 38.8 % (39.6-50.0); HGB 13.4 g/dL (13.0-17.0); Lymphocytes # (A) 1.88 10*3/uL (0.90-5.00); Lymphocytes % (A) 22.4 %; MCH 29.5 pg (27.0-32.0); MCHC 34.5 g/dL (32.0-37.0); MCV 85.3 fL (80.0-97.0); Monocytes # (A) 0.50 10*3/uL (0.20-1.00); Monocytes % (A) 6.0 %; Neutrophils # (A) 5.73 10*3/uL (1.80-7.70); Neutrophils % (A) 68.3 %; Platelet Count 220 10*3/uL (140-440); RBC 4.55 10*6/uL (4.40-5.60); RDW 13.0 % (11.5-14.5); WBC 8.39 10*3/uL (4.50-10.00)
[2024-09-09 08:04] VITALS: TEMP 98
[2024-09-09 08:21] LABS: African American GFR (CKD) 80 (>60 ml/min/1.73 sqM); Anion Gap 10 mmol/L; Blood Urea Nitrogen 20 mg/dL (9-20); Calcium 10.0 mg/dL (8.4-10.2); Carbon Dioxide 24 mmol/L (22-30); Chloride 103 mmol/L (98-107); Glucose 109 mg/dL (74-99); Non-African American GFR(CKD) 69 (>60 ml/min/1.73 sqM); Potassium 4.1 mmol/L (3.5-5.1); Sodium 137 mmol/L (137-145)
[2024-09-09] MEDS: BENZOCAINE SPRAY 1 EACH MM ONE (08:41)
[2024-09-09] MEDS: fentaNYL (PF) 50 MCG/1 ML VIAL IVP ONE (08:47)
[2024-09-09] MEDS: MIDAZOLAM 2 MG/2 ML VIAL IVP ONE ×2 (08:47→10:40)
--- NOTE | 2024-09-09 09:28 | P.TEE ---
Date of Procedure: 09/09/24 Description of Procedure(s): Procedure performed: 1. Transesophageal Echocardiogram with color flow doppler, pulsed wave doppler and continuous wave doppler, (CPT 04707, +[id number], +[id number]) 2. Moderate conscious sedation. Sedation time 12 mins. (CPT 82314) Indications: Severe aortic stenosis Consent: I have discussed the risks, benefits and alternative therapies for the above-mentioned procedure. The patient has indicated understanding and acceptance of the risks of the procedure. Signed consent was obtained and was placed in the paper chart. Procedural Steps: Timeout was performed in usual fashion. Patient's heart rate, blood pressure, oxygen saturation and ECG were monitored. Benzocaine was sprayed liberally in the back of the throat. Bite block was placed between the jaw. 2 mg of Versed and 100 mcg of Fentanyl were administered intravenously. After achieving appropriate moderate conscious sedation, RHYS probe was advanced without difficulty and without any immediate complications to the esophagus. RHYS study was performed with color flow doppler, pulsed wave doppler and continuous wave doppler. The probe was then removed. Patient tolerated the procedure well. Patient was transferred to the post procedure area in stable and satisfactory condition. Throughout the procedure patient's heart rate, blood pressure, oxygen saturation and ECG were monitored. Total sedation time 12 and mins. Complications: none FINDINGS Left Atrium: Mild left atrial dilatation. no evidence of mass or thrombus seen Left Atrial Appendage: Very small left atrial appendage. No evidence of thrombus or mass seen in CUONG Inter atrial septum: Intact inter-atrial septum with no evidence of atrial septal defect or patent foramen ovale. Left Ventricle: Normal global LV size and systolic function. Moderate concentric LVH Right Atrium: Normal overall RA size Right Ventricle: Normal global RV size and systolic function Aortic Valve: Calcified trileaflet valve with moderate regurgitation, severe stenosis. Mean gradient 40 mmHg. Mitral Valve: Struturally normal. Mild mitral regurgitation. Regurgitation of aortic valve is hitting the anterior leaflet and is restricting its opening. Pulmonic Valve: Not well visualized. Tricuspid Valve: Structurally normal. Ascending aorta, Aortic root and Aortic arch: Mild calcification. Aortic root measured at 4.4 cm. Descending aorta: Mild intimal thickening. Small pericardial effusion CONCLUSION: Heavily calcified trileaflet aortic valve with moderate regurgitation, severe stenosis Dilated aortic root measured at 4.4 cm Small pericardial effusion Normal LVEF with moderate concentric LVH Mild left atrial dilatation Mild mitral regurgitation. Rayshawn Calvert MD, RPVI, FACC Thank you for allowing [facility] to participate in this patient's care. Feel free to reach out in case of any followup questions.
[2024-09-09] MEDS: HEPARIN SODIUM,PORCINE (1 ML) 2,500 UNIT in SODIUM CHLORIDE 0.9% 250 ML IRRIGATION PRN (10:22)
[2024-09-09] MEDS: HEPARIN SODIUM,PORCINE 10,000 UNIT in SODIUM CHLORIDE 0.9% 1,000 ML IRRIGATION PRN (10:22)
[2024-09-09] MEDS: fentaNYL (PF) 50 MCG/ML 2 ML AMP IVP ONE (10:40)
[2024-09-09] MEDS: LIDOCAINE 1% INJ 10MG/ML (20 ML MDV) SQ ONE ×2 (10:43→10:44)
[2024-09-09] MEDS: VERAPAMIL SYRINGE (5 MG/10 ML) INTRAARTER ONE (10:44)
[2024-09-09] MEDS: HEPARIN SODIUM 1,000 UN/ML (10ML VL) IVP ONE (11:05)
[2024-09-09] MEDS: IOPAMIDOL-370 100ML BTL INJ ONE (11:16)
[2024-09-09] MEDS: SODIUM CHLORIDE 0.9% 1,000 ML IV SCH (11:30)
--- NOTE | 2024-09-09 11:38 | P.CARDCATH ---
Date of Procedure: 09/09/24 Description of Procedure: DIAGNOSTIC CORONARY ANGIOGRAPHY and LEFT HEART CATH REPORT PROCEDURES PERFORMED: Selective coronary angiography Moderate conscious sedation 37 mins Right radial access Attempted right heart cath could not perform Attempted left heart cath could not perform because of calcified aortic valve with severe stenosis INDICATION: Severe aortic stenosis CONSENT: I have explained the procedural steps of above-mentioned procedures in layman's terms to the patient. I discussed the risks (including but not limited to stroke, emergent vascular or cardiac surgery or ), benefits and alternative therapies for the above-mentioned procedure. I discussed the risks of sedation/analgesia and blood product administration (if indicated). The patient has indicated understanding and acceptance of these risks. Conscious Sedation: Patient's ECG, heart rate, blood pressure, pulse oximetry were monitored throughout the duration of procedure under my direct supervision. [2] mg Versed and [50] mcg Fentanyl were used for induction of moderate conscious sedation. Total duration of moderate concious sedation 37 minutes. PROCEDURAL DETAILS: Patient was prepped and draped in sterile fashion. 1% lidocaine was infiltrated over the right radial artery. Right radial access was obtained via modified seldinger technique. [Ultrasound was used for radial access]. Medications: 5mg of verapamil was administed in the radial sheet. 4000 Units of Heparin was administed once the catheter reached the aortic root Wires and Catheter used: J wire was advanced under fluroscopy to get to aortic root. 5 belgian JR 4 diagnostic catheter was utilized obtain left ventricular pressure and pressure gradint across aortic valve. 5 belgian JR 4 diagnostic catheter was used to selectively engage the right coronary ostium. 5 belgian JL 3.5 diagnostic catheter was utilized to selectively engage the left coronary ostium. Angiographic images were reviewed in detail. Catheter and wire were removed. Radial sheet was flushed. The right radial sheath was removed and a TR band was placed. Patent hemostasis was achieved. The patient tolerated the procedure well. Patient was transported back to the post catheterization holding area in stable condition. TECHNICAL DETAILS Total contrast used: Isovue [60 ml] Complications: [none] Estimated Blood loss: less than 15 ml HEMODYNAMICS: Aortic Pressure: 132/72 mmHg. LV pressure: Could not be performed There was no significant gradient across the aortic valve. SELECTIVE CORONARY ARTERIOGRAPHY: LEFT MAIN: The left main is short and large caliber vessel. It bifurcates into the LAD and circumflex. Left main appears angiographically normal. LEFT ANTERIOR DESCENDING CORONARY ARTERY: LAD is a large caliber vessel which wraps around to the apex. Proximal and mid LAD has mild luminal irregularities. Distal LAD appears angiographically patent. Mid LAD gives rise to a medium size diagonal branch which appears angiographically patent. LEFT CIRCUMFLEX CORONARY ARTERY: LCx is dominant vessel and large caliber. It appears angiographically patent. It appears to medium size OM branch which appears angiographically patent. RIGHT CORONARY ARTERY: Nondominant small caliber. Mid RCA has 70-80% stenosis however a very small vessel not amiable for intervention IMPRESSION: Angiographically patent arteries with mild calcific luminal irregularities in LAD and LCx Nondominant RCA with moderate to severe disease not amiable for intervention because of small size Severely calcified aortic valve with severe stenosis, difficult to cross Dilated aortic root PLAN: Risk factor modification 125 cc/h for 4 hours TAVR versus SAVR evaluation.. Performing Physician Rayshawn Calvert MD, FACC, RPVI Thank you for allowing [facility] to participate in this patient's care. Feel free to reach out in case of any followup questions.
[2024-09-09] MEDS: PREGABALIN 75 MG CAP PO STA (12:49)
[2024-09-09] MEDS: LEVOTHYROXINE 137 MCG TAB PO SCH (12:49)
[2024-09-09 13:24] VITALS: PULSE 46
[2024-09-09 13:36] VITALS: RESP 16
[2024-09-09 14:18] VITALS: BP 130/78
== END ==
LOC: CATHCVL 07:15
PROVIDERS: ATTEND Student in an Organized Health Care Education/Training Program
DX: I35.0 Nonrheumatic aortic (valve) stenosis (principal); I10 Essential (primary) hypertension; Z87.891 Personal history of nicotine dependence; I25.10 Atherosclerotic heart disease of native coronary artery without angina pectoris; J44.9 Chronic obstructive pulmonary disease, unspecified
CPT/HCPCS: 93312; 93320; 93325; 80048; 85025; 93460; C1769 ×2; C1894; C1751; J2250; J1644 ×3; J2003; J3010 ×2; Q9967